=== PATIENT | female | born 1990 | race Native Hawaiian/Other Pacific Islander ===

== ENCOUNTER 2016-09-30 09:31 | Outpatient (CLI) | payer OTHER | END 2016-09-30 09:34 | disposition short-term general hospital (02) | LOC: AMB 09:31 | DX: R45.851 Suicidal ideations (principal) | CPT/HCPCS: A0425; A0429 ==

== ENCOUNTER 2016-09-30 09:34 | Emergency (ER) | payer OTHER ==
[~2016-09-30] VITALS: Ht 147.3 cm; Wt 52.2 kg
[2016-09-30 11:05] LABS: PLATELET COUNT 261 K/uL (152-353)
[2016-09-30 11:31] LABS: POTASSIUM 3.2 mmol/L (3.6-5.2); SODIUM 136 mmol/L (136-145)
[2016-10-01 21:45] VITALS: BP 118/88; TEMP 98.7
== END 2016-10-01 21:45 | disposition other institution (70) ==
LOC: ED 09:34
PROVIDERS: Specialist
DX: R45.851 Suicidal ideations (principal)
CPT/HCPCS: 36415; 80048; 80307; 80320; 80329; 81000; 81025; 84443; 85027; 99285; G0479

== ENCOUNTER 2022-09-20 01:42 | Emergency (ER) | payer OTHER ==
[~2022-09-20] VITALS: Ht 162.6 cm; Wt 65.8 kg
[2022-09-20 01:45] VITALS: TEMP 98
[2022-09-20 05:05] VITALS: BP 113/78
== END 2022-09-20 05:05 | disposition home or self-care (01) ==
LOC: ED 01:42
DX: S32.048A Other fracture of fourth lumbar vertebra, initial encounter for closed fracture (principal); W17.89XA Other fall from one level to another, initial encounter
CPT/HCPCS: 80307; 81002; 81025; 90471; 90715; 96372; 99283; J1885

== ENCOUNTER 2022-10-22 20:49 | Emergency (ER) | payer OTHER ==
[~2022-10-22] VITALS: Ht 162.6 cm; Wt 55.3 kg
[2022-10-22 21:03] VITALS: TEMP 98
[2022-10-22 21:42] VITALS: BP 128/74
== END 2022-10-22 21:42 | disposition home or self-care (01) ==
LOC: ED 20:49
DX: M25.552 Pain in left hip (principal); F17.210 Nicotine dependence, cigarettes, uncomplicated; F12.90 Cannabis use, unspecified, uncomplicated; F10.90 Alcohol use, unspecified, uncomplicated
CPT/HCPCS: 99282